=== PATIENT | male | born 1930 | race Caucasian/White ===

== ENCOUNTER 2018-05-27 11:34 | Emergency (ER) | payer MEDICARE ==
[~2018-05-27] VITALS: Ht 177.8 cm; Wt 61.7 kg
[~2018-05-27 11:34] MED LIST: AMLODIPINE BESYL5 MG PO
[2018-05-27] MEDS ORDERED: Depakote250 MG PO (12:05)
[2018-05-27] MEDS ORDERED: GLYCOLAX119 GM PO (12:07)
[2018-05-27] MEDS ORDERED: DOCUSATE SOD100 MG PO (12:08)
[2018-05-27] MEDS ORDERED: MILK OF MA400 MG/51 PO (12:09)
[2018-05-27] MEDS ORDERED: ASPIRIN CHEWABL81 MG PO (12:10)
[2018-05-27 12:24] LABS: BASO % 0.4 % (0.0-1.0); EOS # 0.1 10*3/uL (0.0-0.4); EOS % 0.8 % (1.0-4.0); HEMATOCRIT 39.1 % (42.0-52.0); LYMPH # 0.8 10*3/uL (1.3-4.4); LYMPH % 9.4 % (27.0-41.0); MEAN CELL VOLUME 99.2 fl (80.0-94.0); MEAN CORPUSCULAR HGB CONC 33.2 g/dl (33.0-37.0); MEAN PLATELET VOLUME 10.6 fl (9.6-12.3); MONO # 0.8 10*3/uL (0.1-1.0); MONO % 9.2 % (3.0-9.0); NEUT # 6.7 10*3/uL (2.3-7.9); PLATELET COUNT AUTOMATED 149 10*3/uL (130-400); RED BLOOD COUNT 3.94 10*6/uL (4.50-5.90); RED CELL DISTRI WIDTH 13.4 % (0-14.5); WHITE BLOOD COUNT 8.4 10*3/uL (4.8-10.8)
[2018-05-27 12:42] LABS: ALBUMIN 4.1 gm/dl (3.1-4.5); CREATININE 1.9 mg/dL (0.70-1.30); POTASSIUM 4.7 mmol/L (3.5-5.1); TOTAL PROTEIN 7.7 gm/dL (6.4-8.2); TROPONIN I 0.017 ng/ml (<0.045)
[2018-05-27 15:30] LABS: BILIRUBIN NEGATIVE (NEGATIVE); BLOOD 3+ (NEGATIVE); CLARITY CLEAR (CLEAR); COLOR YELLOW (YELLOW); GLUCOSE NEGATIVE (NEGATIVE); KETONE TRACE (NEGATIVE); LEUKO ESTERASE NEGATIVE (NEGATIVE); NITRITE NEGATIVE (NEGATIVE); SPECIFIC GRAVITY 1.015 (1.005-1.030); UROBILINOGEN 0.2 E.U./dl (0.2-1.0)
[2018-05-27 15:44] LABS: RBC 21-30 rbc/hpf (0-2); WBC 0-2 wbc/hpf (0-5)
== END 2018-05-27 16:28 | disposition home or self-care (01) ==
LOC: ED 11:34
PROVIDERS: Emergency Medicine
DX: R51 Headache (principal); R10.13 Epigastric pain; R41.0 Disorientation, unspecified; I25.10 Atherosclerotic heart disease of native coronary artery without angina pectoris; I10 Essential (primary) hypertension; I25.2 Old myocardial infarction; Z95.1 Presence of aortocoronary bypass graft; Z98.890 Other specified postprocedural states; Z95.5 Presence of coronary angioplasty implant and graft; Z88.0 Allergy status to penicillin; Z79.82 Long term (current) use of aspirin; Z79.899 Other long term (current) drug therapy

== ENCOUNTER → 2018-08-12 | Day surgery (SDC) | payer MEDICARE ==
[~2018-08-12] VITALS: Ht 177.8 cm; Wt 63.0 kg
[~2018-08-12] MED LIST changes: +ASPIRIN CHEWABL81 MG PO; +DOCUSATE SOD100 MG PO; +Depakote250 MG PO; +GLYCOLAX119 GM PO; +MILK OF MA400 MG/51 PO
--- NOTE | ~2018-08-12 | O ---
[place], [place] OPERATIVE NOTE NAME: MICHELLE PEREZ UNIT #: [id number] ROOM: DOCTOR: NEEMA MILLAN MD BIRTHDATE: [birth year] DOS: 08/12/2018 PREOPERATIVE DIAGNOSIS: Cataract, right eye. POSTOPERATIVE DIAGNOSIS: Cataract, right eye. OPERATION: Extracapsular cataract extraction by phacoemulsification with posterior chamber intraocular lens implantation, right eye. ANESTHESIA: Monitored standby. OPERATIVE FINDINGS AND PROCEDURE: 2% Xylocaine topical anesthetic gel was applied to the eye in the preop area. The patient was taken to the operating room and prepped and draped in the standard fashion for sterile intraocular surgery. A time out procedure was performed verifying correct patient, correct site and corrects lens with Leann Millan M.D. The operating microscope was swung into position and the lid speculum was inserted. Using a Kaleigh paracentesis blade, a paracentesis was made through clear cornea. Viscoelastic was used to fill the anterior chamber. Using a metal keratome a 2.4 mm self-sealing clear corneal cataract incision was made temporally at the limbus. Using a pre-bent 25 gauge cystotome needle, a standard continuous curvilinear capsulorrhexis was performed. The anterior capsule was removed with forceps. The lens nucleus was hydrodissected and phacoemulsified in the posterior chamber. Cortical material was removed with the irrigation aspiration hand piece and the posterior capsule was then polished with a curet under irrigation. The posterior chamber and capsular bag were filled with viscoelastic. A posterior chamber intraocular lens manufactured by: [employer], Model AU00T0, and 21.0 diopters in strength were then inserted into the posterior chamber and within the capsular bag using the lens cartridge and injector system. Viscoelastic was removed using the irrigation aspiration handpiece. The anterior chamber was filled with balanced salt solution through the paracentesis. Both the paracentesis site and cataract incisions were hydrated with BSS and verified to be water-tight and self-sealing. The incision checked to be water-tight using a Weck-Christen sponge. The integrity of the cataract wound and ocular tension were checked. Lid speculum and drapes were removed. The patient was transferred from the operating room to the recovery room in satisfactory condition. [place], [place] OPERATIVE NOTE NAME: MICHELLE PEREZ UNIT #: [id number] ROOM: DOCTOR: NEEMA MILLAN MD BIRTHDATE: [birth year] NEEMA MILLAN MD CM:OPRECORD:OPERATIVE NOTE [id number] [id number] NEEMA MILLAN MD 08/12/18 1414 interface
[2018-08-12 12:07] VITALS: BP 134/64
[2018-08-12 13:06] VITALS: BP 111/58
[2018-08-12 13:20] VITALS: BP 92/54
[2018-08-12 13:32] VITALS: BP 114/56
== END | disposition home or self-care (01) ==
LOC: SDC 08-07 13:15
DX: H25.11 Age-related nuclear cataract, right eye (principal); I25.10 Atherosclerotic heart disease of native coronary artery without angina pectoris; K21.9 Gastro-esophageal reflux disease without esophagitis; G30.9 Alzheimer's disease, unspecified; F02.80 Dementia in other diseases classified elsewhere, unspecified severity, without behavioral disturbance, psychotic disturbance, mood disturbance, and anxiety; Z86.718 Personal history of other venous thrombosis and embolism; Z87.11 Personal history of peptic ulcer disease; Z88.0 Allergy status to penicillin; Z95.1 Presence of aortocoronary bypass graft; Z98.890 Other specified postprocedural states; Z80.9 Family history of malignant neoplasm, unspecified

== ENCOUNTER → 2019-02-23 | Outpatient (CLI) | payer MEDICARE | END | disposition home or self-care (01) | LOC: CARD 03:19 | DX: I05.8 Other rheumatic mitral valve diseases (principal) ==